=== PATIENT | female | born 1960 | race Caucasian/White ===

== ENCOUNTER → 2017-02-26 | Outpatient (CLI) | payer OTHER | END | disposition home or self-care (01) | LOC: HKI 15:03 | DX: M17.12 Unilateral primary osteoarthritis, left knee (principal) | CPT/HCPCS: 73502 ==

== ENCOUNTER 2017-03-03 14:19 | Day surgery (SDC) | payer OTHER ==
[2017-03-03] MEDS ORDERED: MIDAZOLAM 1 MG/ML 2 ML INJ ×3 (17:00)
[2017-03-03] MEDS ORDERED: FENTAnyl 50 MCG/ML VIAL (17:00)
== END 2017-03-03 18:03 | disposition home or self-care (01) ==
LOC: GIL 14:19
DX: R19.4 Change in bowel habit (principal); K29.70 Gastritis, unspecified, without bleeding; K64.8 Other hemorrhoids
CPT/HCPCS: 43239; 87081

== ENCOUNTER 2017-05-29 07:41 | Day surgery (SDC) | payer OTHER ==
[~2017-05-29 07:41] MED LIST: BUPIVACAINE 0.25%/EPI (MDV) 50 ML VIAL INJ; CEFAZOLIN 1 GM INJ
[2017-05-29] MEDS ORDERED: CEFAZOLIN 2 GM/50 ML (PMX) 50 ML IVPB (08:00)
[2017-05-29] MEDS ORDERED: PROPOFOL 20 ML (09:28)
[2017-05-29] MEDS ORDERED: ROCURONIUM 50 MG INJ (09:28)
[2017-05-29] MEDS ORDERED: SUCCINYLCHOLINE CHLORIDE 100 MG/5 ML SYG IV (09:28)
[2017-05-29] MEDS ORDERED: MIDAZOLAM 1 MG/ML 2 ML INJ (09:28)
[2017-05-29] MEDS ORDERED: LIDOCAINE 1% (MDV) 20 ML INJ (09:29)
[2017-05-29] MEDS ORDERED: PROCHLORPERAZINE 10 MG INJ IV (09:30)
[2017-05-29] MEDS ORDERED: HYDROmorphONE 0.5 MG/0.5 ML SYG IV (09:30)
[2017-05-29] MEDS ORDERED: CYCLOBENZAPRINE 10 MG TAB PO (09:30)
[2017-05-29] MEDS ORDERED: HYDROCODONE/APAP (5/325) TAB PO ×2 (09:30)
[2017-05-29] MEDS ORDERED: NALOXONE (0.4 MG/ML) INJ IV (09:30)
[2017-05-29] MEDS ORDERED: ONDANSETRON 4 MG INJ IV (09:30)
[2017-05-29] MEDS ORDERED: ACETAMINOPHEN 325 MG TAB PO (09:30)
[2017-05-29] MEDS ORDERED: DIPHENHYDRAMINE 25 MG CAP PO (09:30)
[2017-05-29] MEDS ORDERED: DEXAMETHASONE 4 MG/ML 1 ML INJ (10:24)
[2017-05-29] MEDS ORDERED: ONDANSETRON 4 MG INJ (10:24)
[2017-05-29] MEDS: CA CHLORIDE 10% 10 ML SYRINGE (10:30)
[2017-05-29] MEDS: BUPIVACAINE 0.25% (STERILE-PAK) 30 ML INJ ×2 (11:01→11:10)
[2017-05-29] MEDS: FENTAnyl 50 MCG/ML VIAL (11:01)
[2017-05-29] MEDS: GELATIN SIZE 100 SPONGE (11:10)
[2017-05-29] MEDS: POLYMYXIN/BACITRACIN 1L IRRIG (11:11)
[2017-05-29] MEDS: THROMBIN 5000 UNIT VIAL (11:11)
[2017-05-29] MEDS ORDERED: IOHEXOL 300MG/ML 30 ML BTL (11:35)
[2017-05-29] MEDS ORDERED: BUPIVACAINE 0.25% (MPF) 30 ML INJ (11:37)
[2017-05-29] MEDS ORDERED: SUGAMMADEX SODIUM 200 MG/2 ML VIAL IV (11:55)
[2017-05-29] MEDS ORDERED: MEPERIDINE 25 MG INJ IV (12:00)
[2017-05-29] MEDS ORDERED: DIPHENHYDRAMINE 50 MG INJ IV (12:00)
[2017-05-29] MEDS ORDERED: HYDROmorphONE (0.2 MG/ML) 10ML SYG IV ×2 (12:00)
[2017-05-29] MEDS ORDERED: LABETALOL HCL 20MG INJ IV (12:00)
[2017-05-29] MEDS: CEFAZOLIN 1 GM/50 ML (PMX) 50 ML IVPB (12:58)
[2017-05-29] MEDS: ONDANSETRON 4 MG INJ IV (12:58)
[2017-05-29] MEDS: HYDROCODONE/APAP (5/325) TAB PO (15:52)
== END 2017-05-29 17:15 | disposition home or self-care (01) ==
LOC: SDS 07:41
DX: M51.16 Intervertebral disc disorders with radiculopathy, lumbar region (principal)
CPT/HCPCS: 63030; 72100; 86850; 86900; 86901; 86999; 88304

== ENCOUNTER 2018-04-22 11:14 | Emergency (ER) | payer OTHER ==
[2018-04-22] MEDS: KETOROLAC 60 MG INJ IM (13:08)
[2018-04-22] MEDS: DEXAMETHASONE 10 MG/ML 1 ML INJ IM (13:20)
== END 2018-04-22 13:25 | disposition home or self-care (01) ==
LOC: FTE 11:14
DX: M54.9 Dorsalgia, unspecified (principal)
CPT/HCPCS: 96372; 99284-25